=== PATIENT | female | born 1965 | race Native Hawaiian/Other Pacific Islander ===

== ENCOUNTER 2016-10-13 08:00 | Outpatient (CLI) | payer OTHER | END 2016-10-13 23:36 | LOC: MRI 08:00 | DX: M47.897 Other spondylosis, lumbosacral region (principal) ==

== ENCOUNTER 2017-12-13 12:43 | Outpatient (CLI) | payer OTHER | END 2017-12-13 22:50 | disposition home or self-care (01) | LOC: US 12:43 | DX: E04.8 Other specified nontoxic goiter (principal) ==

== ENCOUNTER 2017-12-22 08:41 | Outpatient (CLI) | payer OTHER ==
[~2017-12-22] VITALS: Ht 30.5 cm; Wt 0.5 kg
== END 2017-12-22 21:38 | disposition home or self-care (01) ==
LOC: RAD 08:41
PROC: 0GBH3ZX Excision of Right Thyroid Gland Lobe, Percutaneous Approach, Diagnostic (ICD-10-PCS; principal; 2017-12-22)
DX: E04.1 Nontoxic single thyroid nodule (principal)

== ENCOUNTER 2018-03-14 14:40 | Outpatient (CLI) | payer OTHER | END 2018-03-14 20:36 | disposition home or self-care (01) | LOC: LABW 14:40 | DX: E89.0 Postprocedural hypothyroidism (principal) | CPT/HCPCS: 36415; 84436; 84443 ==

== ENCOUNTER 2018-08-18 21:44 | Emergency (ER) | payer OTHER ==
[~2018-08-18] VITALS: Ht 182.9 cm; Wt 86.2 kg
[2018-08-18 23:44] LABS: PLATELET COUNT 349 K/uL (152-353)
[2018-08-18 23:48] LABS: POTASSIUM 3.6 mmol/L (3.6-5.2); SODIUM 138 mmol/L (136-145)
[2018-08-19 02:58] VITALS: BP 126/91; TEMP 98.6
== END 2018-08-19 03:00 | disposition home or self-care (01) ==
LOC: ED 21:44
PROVIDERS: Family Medicine
DX: R55 Syncope and collapse (principal); K21.9 Gastro-esophageal reflux disease without esophagitis
CPT/HCPCS: 36415; 80053; 81000; 84484; 85027; 87088; 93005; 99283; J3490; Q9963

== ENCOUNTER 2018-10-10 09:28 | Emergency (ER) | payer OTHER ==
[~2018-10-10] VITALS: Ht 182.9 cm; Wt 85.3 kg
[2018-10-10 09:36] VITALS: TEMP 97.9
[2018-10-10 11:00] LABS: PLATELET COUNT 429 K/uL (152-353)
[2018-10-10 11:08] LABS: POTASSIUM 3.4 mmol/L (3.6-5.2); SODIUM 138 mmol/L (136-145)
[2018-10-10 13:26] VITALS: BP 150/90
== END 2018-10-10 13:26 | disposition home or self-care (01) ==
LOC: ED 09:28
PROVIDERS: Emergency Medicine
DX: E86.0 Dehydration (principal); K52.89 Other specified noninfective gastroenteritis and colitis
CPT/HCPCS: 36415; 80053; 81000; 82150; 82550; 83690; 84484; 85027; 93005; 96360; 99284

== ENCOUNTER 2019-01-19 08:24 | Outpatient (CLI) | payer OTHER | END 2019-01-19 19:16 | disposition home or self-care (01) | LOC: LABW 08:24 | PROVIDERS: Internal Medicine | DX: E03.9 Hypothyroidism, unspecified (principal); R53.83 Other fatigue; E28.39 Other primary ovarian failure; N95.1 Menopausal and female climacteric states; N95.8 Other specified menopausal and perimenopausal disorders | CPT/HCPCS: 36415; 80053; 80061; 82672; 84144; 84402; 84403; 84439; 84443 ==

== ENCOUNTER 2019-03-03 13:46 | Outpatient (CLI) | payer OTHER | END 2019-03-03 23:41 | disposition home or self-care (01) | LOC: LABW 13:46 | DX: E03.9 Hypothyroidism, unspecified (principal) | CPT/HCPCS: 36415; 84439; 84443 ==

== ENCOUNTER 2019-04-14 09:22 | Outpatient (CLI) | payer OTHER | END 2019-04-14 21:00 | disposition home or self-care (01) | LOC: LABW 09:22 | DX: E03.9 Hypothyroidism, unspecified (principal) | CPT/HCPCS: 36415; 84436; 84443 ==

== ENCOUNTER 2019-05-04 15:20 | Outpatient (CLI) | payer OTHER | END 2019-05-04 21:43 | disposition home or self-care (01) | LOC: RAD 15:20 | DX: R05 Cough (principal); R06.02 Shortness of breath ==

== ENCOUNTER 2019-07-25 08:46 | Outpatient (CLI) | payer OTHER | END 2019-07-25 20:14 | disposition home or self-care (01) | LOC: CT 08:46 | DX: R22.1 Localized swelling, mass and lump, neck (principal) | CPT/HCPCS: 36415; 82565; 84520; Q9963 ==

== ENCOUNTER 2019-12-26 13:14 | Outpatient (CLI) | payer OTHER ==
[2019-12-26 13:55] LABS: PLATELET COUNT 381 K/uL (152-353)
[2019-12-26 14:17] LABS: POTASSIUM 4.3 mmol/L (3.6-5.2); SODIUM 139 mmol/L (136-145)
== END 2019-12-26 19:09 | disposition home or self-care (01) ==
LOC: LABW 13:14
PROVIDERS: Internal Medicine
DX: U07.1 COVID-19 (principal); E03.9 Hypothyroidism, unspecified; J40 Bronchitis, not specified as acute or chronic
CPT/HCPCS: 36415; 80053; 84439; 84443; 85027

== ENCOUNTER 2020-01-08 10:52 | Outpatient (CLI) | payer OTHER | END 2020-01-08 19:41 | disposition home or self-care (01) | LOC: CT 10:52 | DX: R09.1 Pleurisy (principal) | CPT/HCPCS: Q9963 ==

== ENCOUNTER 2020-02-28 08:43 | Outpatient (CLI) | payer OTHER ==
[2020-02-28 09:55] LABS: PLATELET COUNT 355 K/uL (152-353)
[2020-02-28 10:08] LABS: POTASSIUM 4.3 mmol/L (3.6-5.2); SODIUM 141 mmol/L (136-145)
== END 2020-02-28 21:29 | disposition home or self-care (01) ==
LOC: LABW 08:43
PROVIDERS: Nurse Practitioner
DX: M54.16 Radiculopathy, lumbar region (principal); E78.5 Hyperlipidemia, unspecified; E03.9 Hypothyroidism, unspecified; E53.8 Deficiency of other specified B group vitamins
CPT/HCPCS: 36415; 80053; 80061; 82306; 82607; 84439; 84443; 85027

== ENCOUNTER 2020-03-01 08:57 | Outpatient (CLI) | payer OTHER | END 2020-03-01 18:58 | disposition home or self-care (01) | LOC: MRI 08:57 | DX: M54.16 Radiculopathy, lumbar region (principal) | CPT/HCPCS: A9576 ==

== ENCOUNTER 2020-09-24 09:25 | Outpatient (CLI) | payer OTHER | END 2020-09-24 19:59 | disposition home or self-care (01) | LOC: MRI 09:25 | PROVIDERS: ATTEND Physician Assistant | DX: Z48.89 Encounter for other specified surgical aftercare (principal); M54.16 Radiculopathy, lumbar region; M47.896 Other spondylosis, lumbar region ==

== ENCOUNTER 2020-11-27 12:54 | Outpatient (CLI) | payer OTHER ==
[~2020-11-27] VITALS: Ht 182.9 cm; Wt 96.6 kg
== END 2020-11-27 20:28 | disposition home or self-care (01) ==
LOC: DIABINF 12:54
PROVIDERS: ATTEND Internal Medicine Endocrinology, Diabetes & Metabolism
DX: E88.81 Metabolic syndrome and other insulin resistance (principal); E11.9 Type 2 diabetes mellitus without complications; E03.9 Hypothyroidism, unspecified; F51.01 Primary insomnia; E78.2 Mixed hyperlipidemia; I10 Essential (primary) hypertension
CPT/HCPCS: 82948; 96365; 96366; 96521; 99204; J1815

== ENCOUNTER 2020-11-28 12:32 | Outpatient (CLI) | payer OTHER ==
[~2020-11-28] VITALS: Ht 182.9 cm; Wt 96.6 kg
== END 2020-11-28 22:21 | disposition home or self-care (01) ==
LOC: DIABINF 12:32
PROVIDERS: ATTEND Internal Medicine Endocrinology, Diabetes & Metabolism
DX: E88.81 Metabolic syndrome and other insulin resistance (principal); E11.9 Type 2 diabetes mellitus without complications; E03.8 Other specified hypothyroidism; F51.01 Primary insomnia; E78.2 Mixed hyperlipidemia; I10 Essential (primary) hypertension; N18.31 Chronic kidney disease, stage 3a; E11.40 Type 2 diabetes mellitus with diabetic neuropathy, unspecified; M51.16 Intervertebral disc disorders with radiculopathy, lumbar region
CPT/HCPCS: 82948; 96365; 96366; 96521; 99214; J1718; J1815

== ENCOUNTER 2020-12-05 12:49 | Outpatient (CLI) | payer OTHER ==
[~2020-12-05] VITALS: Ht 182.9 cm; Wt 96.6 kg
== END 2020-12-05 21:58 | disposition home or self-care (01) ==
LOC: DIABINF 12:49
PROVIDERS: ATTEND Internal Medicine Endocrinology, Diabetes & Metabolism
DX: E88.81 Metabolic syndrome and other insulin resistance (principal); E03.8 Other specified hypothyroidism; F51.01 Primary insomnia; E78.2 Mixed hyperlipidemia; I10 Essential (primary) hypertension; N18.31 Chronic kidney disease, stage 3a; E11.40 Type 2 diabetes mellitus with diabetic neuropathy, unspecified; M51.16 Intervertebral disc disorders with radiculopathy, lumbar region
CPT/HCPCS: 82948; 96365; 96366; 96521; 99214; J1718; J1815

== ENCOUNTER 2020-12-11 12:25 | Outpatient (CLI) | payer OTHER ==
[~2020-12-11] VITALS: Ht 182.9 cm; Wt 96.6 kg
== END 2020-12-11 21:27 | disposition home or self-care (01) ==
LOC: DIABINF 12:25
PROVIDERS: ATTEND Internal Medicine Endocrinology, Diabetes & Metabolism
DX: E88.81 Metabolic syndrome and other insulin resistance (principal); E03.8 Other specified hypothyroidism; F51.01 Primary insomnia; E78.2 Mixed hyperlipidemia; I10 Essential (primary) hypertension; N18.31 Chronic kidney disease, stage 3a; E11.40 Type 2 diabetes mellitus with diabetic neuropathy, unspecified; M51.16 Intervertebral disc disorders with radiculopathy, lumbar region
CPT/HCPCS: 82948; 96365; 96366; 96521; 99214; J1718; J1815

== ENCOUNTER 2021-01-17 08:44 | Outpatient (CLI) | payer OTHER ==
[2021-01-17 09:00] LABS: PLATELET COUNT 391 K/uL (152-353)
[2021-01-17 09:47] LABS: POTASSIUM 4.7 mmol/L (3.6-5.2)
== END 2021-01-17 22:44 | disposition home or self-care (01) ==
LOC: LABW 08:44
PROVIDERS: ATTEND Internal Medicine
DX: G25.81 Restless legs syndrome (principal); R73.09 Other abnormal glucose; E03.9 Hypothyroidism, unspecified; I10 Essential (primary) hypertension
CPT/HCPCS: 36415; 80053; 80061; 81000; 83036; 84439; 84443; 85027

== ENCOUNTER 2021-04-29 15:30 | Outpatient (CLI) | payer OTHER | END 2021-04-29 20:44 | disposition home or self-care (01) | LOC: MAMMO 15:30 | PROVIDERS: ATTEND Obstetrics & Gynecology | DX: Z12.31 Encounter for screening mammogram for malignant neoplasm of breast (principal) ==

== ENCOUNTER → 2021-05-07 | Outpatient (CLI) | payer OTHER | LOC: RAD 10:27 | PROVIDERS: ATTEND Internal Medicine | DX: M25.512 Pain in left shoulder (principal) ==

== ENCOUNTER 2021-07-28 14:49 | Outpatient (CLI) | payer OTHER | END 2021-07-28 19:23 | disposition home or self-care (01) | LOC: RAD 14:49 | PROVIDERS: ATTEND Internal Medicine | DX: M79.672 Pain in left foot (principal) ==

== ENCOUNTER 2021-11-11 14:36 | Outpatient (CLI) | payer OTHER | END 2021-11-11 19:14 | disposition home or self-care (01) | LOC: LAB 14:36 | PROVIDERS: ATTEND Internal Medicine | DX: N39.0 Urinary tract infection, site not specified (principal) | CPT/HCPCS: 87077; 87086; 87088; 87186 ==

== ENCOUNTER 2022-01-06 11:05 | Outpatient (CLI) | payer OTHER ==
[2022-01-06 13:39] LABS: PLATELET COUNT 376 K/uL (152-353)
[2022-01-06 13:44] LABS: POTASSIUM 4.5 mmol/L (3.6-5.2)
== END 2022-01-06 19:03 | disposition home or self-care (01) ==
LOC: LABW 11:05 → LAB 11:05 → LABW 19:03
PROVIDERS: ATTEND Internal Medicine
DX: R10.13 Epigastric pain (principal)
CPT/HCPCS: 80053; 82150; 83690; 85027

== ENCOUNTER 2022-01-07 08:54 | Outpatient (CLI) | payer OTHER | END 2022-01-07 19:15 | disposition home or self-care (01) | LOC: US 08:54 | PROVIDERS: ATTEND Internal Medicine | DX: R10.13 Epigastric pain (principal) ==

== ENCOUNTER 2022-05-01 08:28 | Outpatient (CLI) | payer OTHER | END 2022-05-01 19:05 | disposition home or self-care (01) | LOC: MAMMO 08:28 | PROVIDERS: ATTEND Physician Assistant Medical | DX: Z12.31 Encounter for screening mammogram for malignant neoplasm of breast (principal) ==

== ENCOUNTER 2022-10-13 08:21 | Outpatient (CLI) | payer OTHER ==
[2022-10-13 08:41] LABS: PLATELET COUNT 358 K/uL (152-353)
[2022-10-13 08:57] LABS: POTASSIUM 4.7 mmol/L (3.6-5.2)
== END 2022-10-13 21:52 | disposition home or self-care (01) ==
LOC: LABW 08:21
PROVIDERS: ATTEND Internal Medicine
DX: E03.8 Other specified hypothyroidism (principal); E11.9 Type 2 diabetes mellitus without complications; I10 Essential (primary) hypertension; M51.16 Intervertebral disc disorders with radiculopathy, lumbar region; E55.9 Vitamin D deficiency, unspecified; R82.998 Other abnormal findings in urine
CPT/HCPCS: 36415; 80053; 80061; 81000; 82043; 82306; 83036; 84439; 84443; 85027; 87086; 87088

== ENCOUNTER 2022-10-19 08:33 | Emergency (ER) | payer OTHER ==
[~2022-10-19] VITALS: Ht 182.9 cm; Wt 86.2 kg
[2022-10-19 08:36] VITALS: TEMP 97.3
[2022-10-19 09:13] LABS: PLATELET COUNT 461 K/uL (152-353)
[2022-10-19 09:19] LABS: POTASSIUM 3.5 mmol/L (3.6-5.2)
[2022-10-19 10:44] VITALS: BP 113/67
== END 2022-10-19 10:44 | disposition home or self-care (01) ==
LOC: ED 08:33
PROVIDERS: Emergency Medicine Emergency Medical Services
DX: F45.8 Other somatoform disorders (principal); R19.7 Diarrhea, unspecified
CPT/HCPCS: 36415; 36600; 80053; 82805; 83735; 84484; 85027; 93005; 96361; 96374; 99284; J2060

== ENCOUNTER 2022-11-04 09:42 | Outpatient (CLI) | payer OTHER | END 2022-11-04 19:40 | disposition home or self-care (01) | LOC: RESP 09:42 | PROVIDERS: ATTEND Specialist | DX: R07.89 Other chest pain (principal) ==

== ENCOUNTER 2022-11-10 09:20 | Emergency (ER) | payer OTHER ==
[~2022-11-10] VITALS: Ht 182.9 cm; Wt 85.7 kg
[2022-11-10 09:22] VITALS: BP 128/76; TEMP 98.9
[2022-11-10 10:22] LABS: POTASSIUM 3.3 mmol/L (3.6-5.2)
[2022-11-10 10:25] LABS: PLATELET COUNT 288 K/uL (152-353)
== END 2022-11-10 10:58 | disposition home or self-care (01) ==
LOC: ED 09:20
PROVIDERS: Emergency Medicine
DX: J10.1 Influenza due to other identified influenza virus with other respiratory manifestations (principal); E87.6 Hypokalemia; Z20.822 Contact with and (suspected) exposure to COVID-19
CPT/HCPCS: 80053; 83605; 84484; 85027; 87040; 87502; 87635; 87651; 96372; 99283; J0696; U0003